=== PATIENT | female | born 1960 | race Hispanic/Latino ===

== ENCOUNTER 2018-01-25 20:51 | Emergency (ER) | payer SELFPAY ==
[2018-01-25 21:08] LABS: APPEARANCE,URINE CLOUDY (CLEAR); BILIRUBIN,URINE NEGATIVE (NEGATIVE); COLOR,URINE YELLOW (YELLOW); GLUCOSE, URINE (UA) NEGATIVE (NEGATIVE); KETONES,URINE NEGATIVE (NEGATIVE); LEUKOCYTE ESTERASE ,URINE TRACE (NEGATIVE); NITRATE,URINE NEGATIVE (NEGATIVE); OCCULT BLOOD,URINE NEGATIVE (NEGATIVE); PH,URINE 8.5 (5.0-8.0); PROTEIN,URINE NEGATIVE (NEGATIVE); UROBILINOGEN,URINE 0.2 mg/dL (0.2-1.0)
[2018-01-25 21:17] LABS: AMORPHOUS SEDIMENT,UR Many /LPF (None Seen); BACTERIA,URINE Few /HPF (None Seen); RBC,URINE None Seen /HPF (0-1); SQUAMOUS EPITHELIAL CELL,UR 0-2 /HPF (0-2)
[2018-01-25] MEDS ORDERED: FLUORESCEIN SODIUM 0.6 MG STRIP ONE (21:33)
[2018-01-25] MEDS ORDERED: TETRACAINE HCL 0.5% 4 ML OPHTH SOLN ONE (21:33)
[2018-01-25] MEDS ORDERED: MORPHINE SULFATE 4 MG/1ML SYG ONE (21:38)
[2018-01-25] MEDS ORDERED: IPRATROPIUM/ALBUTEROL SULFATE 3 ML SOLUTION IH ONE (23:01)
== END 2018-01-25 23:22 | disposition home or self-care (01) ==
LOC: EDH 20:51
DX: B02.22 Postherpetic trigeminal neuralgia (principal); J45.909 Unspecified asthma, uncomplicated
CPT/HCPCS: 81001; 94640; 96372; 99283; J2270